=== PATIENT | female | born 2000 | race Caucasian/White ===

== ENCOUNTER 2022-08-04 23:54 | Emergency (ER) | payer OTHER ==
[~2022-08-04] VITALS: Ht 160 cm; Wt 103.7 kg
[2022-08-05 00:37] LABS: APPEARANCE, URINE CLEAR (CLEAR); BACTERIA, URINE AUTO NEGATIVE (NEGATIVE); BILIRUBIN, URINE AUTO NEGATIVE (NEGATIVE); BLOOD, URINE BLOOD 1+ (NEGATIVE); COLOR, URINE COLORLESS (YELLOW); GLUCOSE, URINE (UA) AUTO NEGATIVE (NEGATIVE); KETONE, URINE AUTO NEGATIVE (NEGATIVE); LEUKOCYTE ESTERASE, URINE AUTO NEGATIVE (NEGATIVE); NITRITE, URINE AUTO NEGATIVE (NEGATIVE); PROTEIN, URINE AUTO NEGATIVE (NEGATIVE); RBC, URINE AUTO 0 /HPF (0-3); SPECIFIC GRAVITY URINE AUTO 1.002 (1.002-1.035); SQUAMOUS EPITHELIAL CELL UR AU 0 /HPF (0-6); UROBILINOGEN, URINE AUTO 0.2 mg/dL (0.0-2.0); WBC, URINE AUTO 0 /HPF (0-3)
[2022-08-05] MEDS ORDERED: RHOGAM 300MCG (1500IU) INJ IM ONE (06:45)
[2022-08-05 08:08] VITALS: BP 151/81; TEMP 98.3; O2SAT 97
== END 2022-08-05 08:08 | disposition home or self-care (01) ==
LOC: M ED 23:54
DX: O20.0 Threatened abortion (principal); Z3A.01 Less than 8 weeks gestation of pregnancy; Z67.91 Unspecified blood type, Rh negative
CPT/HCPCS: 36415; 76801; 81001; 84702; 86850; 86901; 99283; J2790

== ENCOUNTER 2022-09-30 21:50 | Emergency (ER) | payer OTHER ==
[~2022-09-30] VITALS: Ht 157.5 cm; Wt 102.9 kg
[2022-09-30 23:00] LABS: BASO % 0.3 % (0.0-1.0); EOS # 0.2 10^3/uL (0.0-0.5); EOS % 1.5 % (0.0-3.0); HEMATOCRIT 40.6 % (36.0-47.0); HEMOGLOBIN 13.6 g/dl (12.0-15.5); LYMPH # 2.5 10^3/uL (1.5-5.0); LYMPH % 19.3 % (24.0-44.0); MEAN CORPUSCULAR HEMOGLOBIN 27.5 pg (27.0-33.0); MEAN CORPUSCULAR HGB CONC 33.5 g/dl (32.0-36.5); MEAN CORPUSCULAR VOLUME 82.2 fl (80.0-96.0); MONO # 1.3 10^3/uL (0.0-0.8); MONO % 9.9 % (2.0-8.0); NEUTROPHILS # 8.9 10^3/uL (1.5-8.5); NEUTROPHILS % 68.6 % (36.0-66.0); PLATELET COUNT, AUTOMATED 292 10^3/uL (150-450); RED BLOOD COUNT 4.94 10^6/uL (4.00-5.40)
[2022-09-30 23:31] LABS: CK-MB VALUE MASS < 1.0 NG/ML (<3.6)
[2022-09-30 23:33] LABS: BLOOD UREA NITROGEN 9 MG/DL (9-23); CALCIUM LEVEL 8.9 MG/DL (8.5-10.1); CARBON DIOXIDE LEVEL 26 MMOL/L (20-31); CHLORIDE LEVEL 106 MMOL/L (98-107); CPK CREATINE PHOSPHOKINASE 61 U/L (34-145); GLOMERULAR FILTRATION RATE > 60.0 (>60); GLUCOSE, FASTING 101 MG/DL (60-100); MB/CK RELATIVE INDEX 1.63 (< OR =4); SODIUM LEVEL 141 MMOL/L (136-145)
[2022-09-30 23:35] LABS: THYROID STIMULATING HORMONE 3.298 uIU/ML (0.55-4.78)
[2022-09-30 23:51] LABS: HCG, SERUM QUALITATIVE NEGATIVE (NEGATIVE)
[2022-10-01 02:08] LABS: CK-MB VALUE MASS < 1.0 NG/ML (<3.6)
[2022-10-01 02:39] LABS: CPK CREATINE PHOSPHOKINASE 61 U/L (34-145); MB/CK RELATIVE INDEX 1.63 (< OR =4)
[2022-10-01 09:00] VITALS: BP 141/86; TEMP 98.6; O2SAT 100
== END 2022-10-01 09:05 | disposition home or self-care (01) ==
LOC: M ED 21:50
DX: R00.2 Palpitations (principal); R00.0 Tachycardia, unspecified; J30.2 Other seasonal allergic rhinitis

== ENCOUNTER 2023-03-20 07:58 | Day surgery (SDC) | payer OTHER ==
[~2023-03-20] VITALS: Ht 165.1 cm; Wt 93.9 kg
[~2023-03-20 07:58] MED LIST: ALBU8.5H INH; BISO5TAB14 PO; FLUT12AE6 INH; MISO200T83 PO; NS 1,000 ML IV ONE; ROSU5TAB5 PO
[2023-03-20] MEDS ORDERED: propofoL 200 MG/20 ML VIAL As Ordered ONE (09:33)
[2023-03-20] MEDS ORDERED: LIDOCAINE 2% 100MG/5ML SDV (FOR ANES.) As Ordered ONE (09:33)
[2023-03-20 09:49] VITALS: TEMP 98.9
[2023-03-20 10:05] VITALS: BP 138/79; O2SAT 100
== END 2023-03-20 10:14 | disposition home or self-care (01) ==
LOC: M OPP 07:58
PROVIDERS: ATTEND Internal Medicine Gastroenterology
DX: K64.4 Residual hemorrhoidal skin tags (principal); K64.8 Other hemorrhoids; K63.5 Polyp of colon; K52.9 Noninfective gastroenteritis and colitis, unspecified; K92.1 Melena; Z87.891 Personal history of nicotine dependence; Z79.02 Long term (current) use of antithrombotics/antiplatelets; Z79.51 Long term (current) use of inhaled steroids; Z79.899 Other long term (current) drug therapy

== ENCOUNTER 2023-03-30 03:03 | Emergency (ER) | payer OTHER ==
[~2023-03-30] VITALS: Ht 162.6 cm; Wt 95.8 kg
[~2023-03-30 03:03] MED LIST changes: -NS 1,000 ML IV ONE
[2023-03-30] MEDS ORDERED: ACET-861 PO (03:13)
[2023-03-30] MEDS ORDERED: UNIS25TA3 PO (03:13)
[2023-03-30] MEDS: KETOROLAC 60MG 2ML VIAL IM ONE (07:22)
[2023-03-30] MEDS: methocarbamoL 500 MG TAB PO ONE (07:22)
[2023-03-30] MEDS ORDERED: METH-1164 PO (08:02)
[2023-03-30] MEDS ORDERED: NAPR-837 PO (08:02)
[2023-03-30 08:07] VITALS: BP 130/85; TEMP 96.8; O2SAT 98
== END 2023-03-30 08:35 | disposition home or self-care (01) ==
LOC: M ED 03:03
DX: I10 Essential (primary) hypertension (principal); M41.82 Other forms of scoliosis, cervical region; J30.2 Other seasonal allergic rhinitis; Z87.891 Personal history of nicotine dependence; Z79.899 Other long term (current) drug therapy
CPT/HCPCS: 72052; 93005; 96372; 99284; J1885

== ENCOUNTER → 2023-08-02 | Outpatient (CLI) | payer OTHER ==
[~2023-08-02] MED LIST changes: +ACET-861 PO; +METH-1164 PO; +NAPR-837 PO; +ROSU5TAB40 PO; -ROSU5TAB5 PO; +UNIS25TA3 PO
== END ==
LOC: M RAD 14:52
PROVIDERS: ATTEND Physician Assistant
DX: J45.20 Mild intermittent asthma, uncomplicated (principal)

== ENCOUNTER → 2023-10-15 | Outpatient (CLI) | payer OTHER ==
[~2023-10-15] MED LIST changes: +E-Z-GAS II EFFERVESCENT PACKET (SODIUM BICARB./CITRIC ACID/SIMETHICONE) As Ordered ONE; +E-Z-HD 98% w/w 340GM SUSP BTL As Ordered ONE; +E-Z-PAQUE 96% w/w SUSP 176GM BTL As Ordered ONE
== END ==
LOC: M RAD 09-26 09:25
PROVIDERS: ATTEND Nurse Practitioner Family
DX: K44.9 Diaphragmatic hernia without obstruction or gangrene (principal); K21.9 Gastro-esophageal reflux disease without esophagitis; R07.9 Chest pain, unspecified

== ENCOUNTER 2023-11-08 11:50 | Day surgery (SDC) | payer OTHER ==
[~2023-11-08] VITALS: Ht 162.6 cm; Wt 101.6 kg
[~2023-11-08 11:50] MED LIST changes: -E-Z-GAS II EFFERVESCENT PACKET (SODIUM BICARB./CITRIC ACID/SIMETHICONE) As Ordered ONE; -E-Z-HD 98% w/w 340GM SUSP BTL As Ordered ONE; -E-Z-PAQUE 96% w/w SUSP 176GM BTL As Ordered ONE; +FAMO20TA PO; +HYDR-3363 PO; +PANT20TA6 PO; +TUMS500C PO; +VENTAER INH; +flovent inhaler INH
[2023-11-08] MEDS: NS 1,000 ML IV ONE (12:09)
[2023-11-08] MEDS ORDERED: fentaNYL 100 MCG/2 ML INJECTION As Ordered ONE (13:10)
[2023-11-08] MEDS ORDERED: LIDOCAINE 2% 100MG/5ML SDV (FOR ANES.) As Ordered ONE (13:10)
[2023-11-08] MEDS ORDERED: propofoL 200 MG/20 ML VIAL As Ordered ONE (13:10)
[2023-11-08 13:35] VITALS: TEMP 98.8
[2023-11-08 13:48] VITALS: BP 131/84; O2SAT 99
== END 2023-11-08 13:53 | disposition home or self-care (01) ==
LOC: M OPP 11:50
PROVIDERS: ATTEND Internal Medicine Gastroenterology
DX: R10.33 Periumbilical pain (principal); R12 Heartburn; I10 Essential (primary) hypertension; E78.5 Hyperlipidemia, unspecified; J45.909 Unspecified asthma, uncomplicated; Z87.891 Personal history of nicotine dependence; F12.10 Cannabis abuse, uncomplicated; Z91.09 Other allergy status, other than to drugs and biological substances; Z79.899 Other long term (current) drug therapy
CPT/HCPCS: 43239; 88305; J3010

== ENCOUNTER → 2024-03-24 | Outpatient (CLI) | payer OTHER ==
[~2024-03-24] MED LIST changes: +E-Z-GAS II EFFERVESCENT PACKET (SODIUM BICARB./CITRIC ACID/SIMETHICONE) As Ordered ONE; +E-Z-HD 98% w/w 340GM SUSP BTL As Ordered ONE; +E-Z-PAQUE 96% w/w SUSP 176GM BTL As Ordered ONE; -ROSU5TAB40 PO; +ROSU5TAB49 PO
== END ==
LOC: M RAD 08:28
PROVIDERS: ATTEND Physician Assistant Medical
DX: R10.13 Epigastric pain (principal); K44.9 Diaphragmatic hernia without obstruction or gangrene; K21.9 Gastro-esophageal reflux disease without esophagitis; K31.89 Other diseases of stomach and duodenum

== ENCOUNTER 2024-05-19 13:18 | Day surgery (SDC) | payer OTHER ==
[~2024-05-19] VITALS: Ht 162.6 cm; Wt 102.4 kg
[~2024-05-19 13:18] MED LIST changes: -E-Z-GAS II EFFERVESCENT PACKET (SODIUM BICARB./CITRIC ACID/SIMETHICONE) As Ordered ONE; -E-Z-HD 98% w/w 340GM SUSP BTL As Ordered ONE; -E-Z-PAQUE 96% w/w SUSP 176GM BTL As Ordered ONE
[2024-05-19] MEDS ORDERED: fentaNYL 100 MCG/2 ML INJECTION As Ordered ONE (14:27)
[2024-05-19] MEDS ORDERED: propofoL 200 MG/20 ML VIAL As Ordered ONE (14:28)
[2024-05-19] MEDS ORDERED: GLYCOPYRROLATE INJ 0.2 MG/ML 2 ML VIAL As Ordered ONE (14:28)
[2024-05-19] MEDS ORDERED: LIDOCAINE 2% 100MG/5ML SDV (FOR ANES.) As Ordered ONE (14:28)
[2024-05-19 14:45] VITALS: TEMP 97.1
[2024-05-19 15:00] VITALS: BP 127/76; O2SAT 98
== END 2024-05-19 15:01 | disposition home or self-care (01) ==
LOC: M OPP 13:18
PROVIDERS: ATTEND Internal Medicine Gastroenterology
DX: K44.9 Diaphragmatic hernia without obstruction or gangrene (principal); R93.3 Abnormal findings on diagnostic imaging of other parts of digestive tract; R12 Heartburn; Z91.048 Other nonmedicinal substance allergy status; Z79.899 Other long term (current) drug therapy; J45.909 Unspecified asthma, uncomplicated; Z87.891 Personal history of nicotine dependence
CPT/HCPCS: 43239; 88305; J1596; J3010